=== PATIENT | female | born 1955 | race Caucasian/White ===

== ENCOUNTER 2024-04-18 21:01 | Outpatient (CLI) | payer MEDICARE, OTHER, SELFPAY | END 2024-04-18 21:02 | disposition home or self-care (01) | LOC: SLEEP 21:02 | PROVIDERS: PCP Family Medicine; Visit Provider Internal Medicine | DX: G47.33 Obstructive sleep apnea (adult) (pediatric) (principal) | CPT/HCPCS: 95810; A9270 ==

== ENCOUNTER 2024-05-24 08:15 | Outpatient (RCR) | payer MEDICARE, OTHER, SELFPAY | END 2024-08-14 12:56 | disposition home or self-care (01) | PROVIDERS: PCP Family Medicine; Visit Provider Family Medicine | DX: M70.61 Trochanteric bursitis, right hip (principal); M70.62 Trochanteric bursitis, left hip; M16.12 Unilateral primary osteoarthritis, left hip; M51.36 Other intervertebral disc degeneration, lumbar region; M25.552 Pain in left hip; M25.551 Pain in right hip; M54.50 Low back pain, unspecified; Z51.89 Encounter for other specified aftercare | CPT/HCPCS: 97110; 97140; 97161 ==

== ENCOUNTER 2024-08-03 09:12 | Inpatient (IN) | payer MEDICARE, OTHER, SELFPAY ==
[2024-08-02] VITALS (29 sets, daily range): BP systolic 79–155; BP diastolic 50–105; PULSE 68–92; RESP 14–18; TEMP 35.6–36.6; O2SAT 92–100; BMI 31.4
[2024-08-02] MEDS: ACETAMINOPHEN 500 MG TABLET 1000 MG PO ×3 (07:15→19:50)
[2024-08-02] MEDS: OXYCODONE (CR) 10 MG TAB.ER.12H PO (07:15)
[2024-08-02] MEDS: SODIUM CHLORIDE 0.9 % (FLUSH) 10 ML SYRINGE IVF (07:15)
[2024-08-02] MEDS: fentaNYL 100 MCG/2 ML inj IVP (07:25)
[2024-08-02] MEDS: MIDAZOLAM HCL 1 MG/ML inj IVP (07:25)
[2024-08-02] MEDS: LACTATED RINGERS 1000 ML 1,000 ML 100 ML IV (07:25)
[2024-08-02] MEDS: CEFAZOLIN 2 GM INJ IVP (07:40)
[2024-08-02] MEDS: TRANEXAMIC ACID 100 MG/ML INJ 1000 MG IV (07:45)
--- NOTE | 2024-08-02 07:45 | CRLHL7_ITS ---
For Patients: As a result of the Century Cures Act, medical imaging exams and procedure reports are released immediately into your electronic medical record. You may view this report before your referring provider. If you have questions, please contact your health care provider. INDICATION: Left total hip prosthesis placement. COMPARISON: Pelvis and left hip from 06/04/2024. FINDINGS: Intraoperative fluoroscopy is provided. 84.1 seconds of fluoroscopic time was used. Two AP images of the left hip are submitted. The components of a newly placed long-stem left total hip prosthesis are in anatomic alignment with no sign of fracture, loosening, or dislocation. There is no sign of fracture of the [place] osseous structures. IMPRESSION: Satisfactory placement of a new long stem left total hip prosthesis. Dictated by Toñito Carter MD @ 08/03/2024 9:14:58 PM (Electronically Signed)
--- NOTE | 2024-08-02 08:00 | W.ANESCHARGE ---
Anesthesia Charges Start Date/Time Anesthesia Start Date: 08/02/24 Anesthesia Start Time: 07:31 Stop Date/Time Anesthesia Stop Date: 08/02/24 Anesthesia Stop Time: 11:27
--- NOTE | 2024-08-02 08:00 | W.PM.NB ---
Nerve Block Nerve Block Time Seen by Provider: 07:30 Date Seen: 08/02/24 Type of block requested by surgeon for post-operative analgesia: BRANDON/LFCN Side: left Time out performed: Yes Verification of patient name: Yes Verification of date of : Yes Site marking: site marked Name of person performing procedure: Kirill Continuous monitoring Was continuous monitoring of O2 sat, B/P, surveillance monitor, recorded every 15 minutes?: Yes Procedure Checklist: sterile prep, needles and gloves Ultrasound guided. Images saved: Yes Medications given in 5ml increments after negative aspiration: Ropivicaine %: 0.5 mL: 30 Needle gauge: 20 Precedex (mcg): 25 Patient tolerated procedure well: Yes Additional comments: Needle noted below psoas tendon needle noted adjacent to LFCN Block Charges Block Charge (with Pro Fee): Other Periph Nerve Block Use of Ultrasound Machine for Block: Yes- US Guidance/pain block
--- NOTE | 2024-08-02 10:37 | CRLHL7_ITS ---
For Patients: As a result of the Century Cures Act, medical imaging exams and procedure reports are released immediately into your electronic medical record. You may view this report before your referring provider. If you have questions, please contact your health care provider. INDICATION: Status post hip prosthesis placement. COMPARISON: Intraoperative films from today. Preoperative films from 06/04/2024. FINDINGS: The left hip was examined with AP and cross-table lateral. An AP view of the pelvis is obtained for a total of three views. The components of the newly placed long-stem left total hip prosthesis are again seen in anatomic alignment with no sign of fracture, loosening, or dislocation. Three large metallic clips are seen along the lateral proximal left femoral shaft. There is an acute, oblique, nondisplaced fracture of the lateral proximal femoral shaft adjacent to the inferior clip. This is in the area of the lucency lesion mildly expanding the medullary cavity of the mid-proximal left femoral shaft. Recommend correlation with the operative note. A large metallic clip is seen superior to the lesser trochanter. The left femoral head and acetabulum are in anatomic alignment. No degenerative disease is seen of the left hip. The right hip is unremarkable. The SI joints and pubic symphysis are normal in appearance. The rest of the bony pelvis and soft tissues are normal in appearance. IMPRESSION: 1. Satisfactory positioning of a long-stem left total hip prosthesis. 2. Acute, oblique, nondisplaced fracture of the lateral proximal femoral shaft, adjacent to the inferior of 3 large metallic clips placed in the lateral proximal femoral cortex. Recommend correlation with the procedure notes. Dictated by Toñito Carter MD @ 08/03/2024 9:19:55 PM (Electronically Signed)
--- NOTE | 2024-08-02 10:39 | P.ORPRC_ITS ---
Procedure Note Date of procedure: 08/02/24 Procedure: PREOPERATIVE DIAGNOSIS: Left hip osteoarthritis, femoral shaft fibrous dysplasia POSTOPERATIVE DIAGNOSIS: Left hip osteoarthritis, femoral shaft fibrous dysplasia, greater trochanter fracture through the fibrous dysplasia NAME OF OPERATION: Left total hip arthroplasty, greater trochanter fracture ORIF SURGEON: Luis Perkins MD DOUBLE NEEDLE OPERATOR: Aurea Soto PA-C, BLANQUITA Stanford IMPLANTS: 1. [employer] [place] # 50 sector ingrowth cup 2. 32 x 50 +4 neutral polyethylene 3. [place] # 14 revision standard collared ingrowth stem 4. 32 +1 ceramic femoral head ANESTHESIA: Spinal ESTIMATED BLOOD LOSS: 350 cc COMPLICATIONS: None SPECIMENS: Bone from the canal obtained through the fracture from the fibrous dysplasia sent labeled as left femur fibrous dysplasia DRAINS: None PREOPERATIVE ANTIBIOTICS: Ancef 1 g INDICATIONS: The patient is a 69-year-old with a longstanding history of severe, unrelenting left hip pain secondary to end-stage left hip osteoarthritis. Despite appropriate nonoperative management, including activity modification, use of an assist device, anti-inflammatories, [id number] pain medication, physical therapy and injections, they continue to have pain and disability. Operative intervention was offered. There is an area of fibrous dysplasia of the femoral shaft, near where the tip of our femoral component would and. Therefore, we had planned to have a longer implant available to be able to bypass the lesion by 2 shaft diameters. The risks, benefits and expected outcomes were discussed in detail. These included but were not limited to: Infection, bleeding, injury to blood vessel or nerve, venous thromboembolism. All questions were answered to their satisfaction. Use of an carpenter assistant installer was necessary throughout the case for patient positioning and safety, soft tissue retraction and closure. A modifier 22 should be added to this case. The area of fibrous dysplasia resulted in bone that was quite thin and weak. This resulted in a fracture that required fixation and a long-stemmed implant. The case took significantly longer to complete because of these factors. PROCEDURE: Spinal anesthesia was administered. The patient was placed supine on the [place] table. The carpenter assistant installer made sure the patient was properly positioned. The left hip was prepped and draped in the usual sterile fashion. The image intensifier was brought in for a perfect AP pelvis and a perfect double tear drop AP view of each hip which were used for intraoperative templating with our fluoroscopic guide. An oblique incision was made 3 cm distal and 3 cm lateral to the anterior superior iliac spine. The carpenter assistant installer retracted the soft tissues to protect them. Subcutaneous dissection was taken with electrocautery to the superficial fascia. The fascia was divided in line with the incision. Blunt dissection was carried medially to the tensor fascia lizzette and sartorius interval. Deep dissection was carried with electrocautery. The circumflex vessels were cauterized and divided. The capsule was exposed and then divided in a T- fashion, tagged with #1 Ethibond sutures. Retractors were placed in the joint, held by the carpenter assistant installer. The corkscrew was placed in the femoral head. The neck cut was made in the subcapital region. We made a second neck cut more distal. The napkin ring of bone was removed. The femoral head was removed intact. Acetabular retractors were placed, held by the carpenter assistant installer. The labrum was sharply debrided. The capsule was released. The 43 mm reamer was used to the true medial wall. We then enlarged in 2 mm increments using the image inte nsifier for our reamer placement. We impacted the cup which had excellent purchase. We placed the polyethylene. Attention was then turned to the proximal femur. The limb was placed in 140 degrees of external rotation, maximum extension and adduction. A significant amount of time was spent releasing the capsule to allow us to deliver the femur into the wound and complete the femoral side safely. Retractors were held by the carpenter assistant installer throughout the femoral preparation. The box puller and canal finder were used. Broaches were used to a stable size. The calcar reamer was used. As we seated the final broach a fracture was noted in the posterior aspect of the femoral neck. A super cable was placed around it, proximal to the lesser trochanter. Trial components were placed. The hip was reduced and was found to be stable with appropriate soft tissue tension. Length and offset had been nicely restored using the image intensifier and our fluoroscopic guide. However, there was a fracture noted over the lateral cortex of proximal portion of the fibrous dysplasia lesion. There was a 2nd fracture line more proximal to this which presumably heads posterior, proximally and exits the posterior femoral neck. Therefore, the medial calcar and the entirety of the medial shaft is intact. The greater trochanter is a large piece. There was a small butterfly fragment which comprises the lateral cortex of the shaft, at the fibrous dysplasia lesion. Trial components were removed. A separate, longitudinal incision was placed over the lateral thigh at the level of the distal most fracture. Subcutaneous dissection was taken Dr. Ventura to the IT band. The ITB band was divided in line. The fascia over the vastus lateralis was sharply divided. The fibers of the lateralis were bluntly divided with a Gonzalez elevator. The [place] retractor was placed. We placed 2 super cables around the butterfly fragment, reducing it near anatomically. We placed a 4th super cable just proximal to this at the distal tip of the greater trochanter fracture, resulting in 2 super cables securing the greater trochanter fragment. We then returned to the femoral prep. The shaft was carefully reamed by hand to 14. We then carefully broached with the revision broaches to 14. The 14 broach has excellent stability. We placed the 14 revision trial and reduced the hip. The hip was found to be stable with appropriate soft tissue tension. Length and offset was nicely restored. Trial components were removed. The stem was impacted. We placed the femoral head. Again, the hip was reduced and was found to be stable with appropriate soft tissue tension. Length and offset had been nicely restored. We inspected fractures over the lateral cortex through a more distal incision and found them to remain nicely reduced. The carpenter assistant installer did a three minute dilute Betadine solution soak. The carpenter assistant installer irrigated the wound with 3 liters of normal saline via pulse lavage. The carpenter assistant installer repaired the anterior capsule with a #1 Vicryl and our previously placed Ethibond sutures. The carpenter assistant installer closed the fascia over the tensor fascia lizzette with a #1 PDO Stratafix, subcutaneous tissues with 2-0 Vicryl, skin with a running 3-0 Stratafix and glue. A dry dressing was applied by the carpenter assistant installer. Sponge and needle counts were correct x 2. The patient tolerated the procedure well; there were no apparent complications. They were awakened and extubated in the operating room, sent to the Post-Anesthesia Care Unit in satisfactory condition. PLAN: 1. The patient will be mobilized with physical therapy, weight-bearing as tolerates 2. Xarelto x 5 days then aspirin x 30 days will be used for DVT prophylaxis 3. The patient will be admitted overnight and discharged once medically appropriate
--- NOTE | 2024-08-02 11:26 | W.ANESCHARGE ---
Anesthesia Charges Start Date/Time Anesthesia Start Date: 08/02/24 Anesthesia Start Time: 07:31 Stop Date/Time Anesthesia Stop Date: 08/02/24 Anesthesia Stop Time: 11:27
[2024-08-02] MEDS: fentaNYL 100 MCG/2 ML inj 50 MCG IVP (11:45)
[2024-08-02] MEDS: LACTATED RINGERS 1000 ML 1,000 ML 75 ML IV (12:48)
[2024-08-02] MEDS: ONDANSETRON 2 MG/ML inj 4 MG IVP ×2 (12:49→18:28)
--- NOTE | 2024-08-02 13:02 | P.IMCN_ITS ---
Date of Consult Patient: [facility] Patient Consult date: 08/02/24 Requesting Physician: Orthopedics Primary Care Provider: Sandra Avelar MD Consult Narrative Reason for consult: Medical management Narrative: Steffany Pedroza is a 69 year old female past medical history significant for hypertension, hypothyroidism, hyperlipidemia, celiac disease, malignant melanoma of left lower leg, asthma is admitted to the medical floor from same-day surgery following elective left BREEZY resulting in intraoperative left greater trochanter fracture. Postoperatively, patient reports pain is currently well managed 11/05. Had some mild nausea but this has improved with Zofran. No vomiting. Tolerating ice chips. Denies headache or dizziness. Denies chest pain or shortness of breath. Review of Systems Narrative: REVIEW OF SYSTEMS: Complete review of systems performed and negative unless otherwise stated in HPI or below. PFSH PFS Medical History Acute diverticulitis ?K57.92 - Diverticulitis of intestine, part unspecified, without perforation or abscess without bleeding (ICD-10) Numbness of toes ?R20.0 - Anesthesia of skin (ICD-10) Celiac disease ?K90.0 - Celiac disease (ICD-10) Malignant melanoma of left lower leg ?C43.72 - Malignant melanoma of left lower limb, including hip (ICD-10) Hypothyroid ?E03.9 - Hypothyroidism, unspecified (ICD-10) High cholesterol ?E78.00 - Pure hypercholesterolemia, unspecified (ICD-10) Asthma ?J45.909 - Unspecified asthma, uncomplicated (ICD-10) Hypertension ?I10 - Essential (primary) hypertension (ICD-10) Sleep apnea ?G47.30 - Sleep apnea, unspecified (ICD-10) Surgical History H/O hemorrhoidectomy ?Z98.890 - Other specified postprocedural states (ICD-10) History of appendectomy ?Z90.49 - Acquired absence of other specified parts of digestive tract (ICD- 10) Family History Father Pancreatic cancer Mother Colon cancer Social History Smoking Status: Never smoker How often do you have a drink containing alcohol: monthly or less AUDIT-C Alcohol total score: 1 Non-prescribed substance use: denies use Caffeine: Yes Meds Home Medications and Allergies Home Medications ?Medication ?Instructions ?Recorded ?Confirmed ?Type fluticasone 250 mcg-salmeterol 50 1 inh inhalation Q12H 08/05/22 08/02/24 History mcg/dose blistr powdr for inhalation (Advair Diskus) betamethasone, augmented 0.05 % 1 applic topical BID PRN 06/04/24 08/02/24 History lotion latanoprost 0.005 % eye drops 1 drp ophthalmic (eye) HS 06/04/24 08/02/24 History levothyroxine 112 mcg tablet 112 mcg PO DAILY 06/04/24 08/02/24 History lisinopril 20 1 tab PO DAILY 06/04/24 08/02/24 History mg-hydrochlorothiazide 25 mg tablet rosuvastatin 5 mg tablet 5 mg PO MOWEFR 07/23/24 08/02/24 History celecoxib 200 mg capsule 200 mg PO BID 08/02/24 08/02/24 History dorzolamide 22.3 mg-timolol 6.8 1 drp ophthalmic (eye-left) BID 08/02/24 08/02/24 History mg/mL eye drops (Cosopt) Allergies Allergy/AdvReac Type Severity Reaction Status Date / Time No Known Drug Allergies Allergy Verified 06/12/24 14:11 Exam Narrative: Exam Narrative: PHYSICAL EXAM General: Pleasant, conversant, NAD HEENT: Normocephalic, atraumatic, sclera white, EOMI, oral mucosa moist Cardiovascular: RRR, S1S2. No pitting edema Pulmonary: CTA bilaterally without rhonchi, rales, expiratory wheezes. No dyspnea Abdominal: Soft, nondistended, NTTP Neurological: Alert, answering questions appropriately, cranial nerves intact, no focal findings Extremities: No gross joint deformity or swelling. Postoperative dressing in place, dry. Neurovascularly intact Skin: Warm, dry. Const: Vital Signs, click to edit/add: Vital Signs - 24 hr 08/02/24 07:14 08/02/24 07:17 08/02/24 07:20 Temperature 97.6 F Pulse Rate 90 89 91 Pulse Rate [Right Pulse Oximeter] Respiratory Rate 16 16 14 Blood Pressure 152/87 H 155/88 H 153/105 H Blood Pressure [Le ft Arm] Pulse Oximetry 98 98 100 Oxygen Delivery Me thod Room Air Nasal Cannula Nasal Cannula Oxygen Flow Rate 3 3 08/02/24 07:25 08/02/24 11:25 08/02/24 11:30 Temperature 97.4 F L Pulse Rate 92 76 77 Pulse Rate [Right Pulse Oximeter] Respiratory Rate 14 14 14 Blood Pressure 133/69 87/61 L 89/56 L Blood Pressure [Le ft Arm] Pulse Oximetry 92 100 98 Oxygen Delivery Me thod Nasal Cannula Room Air Room Air Oxygen Flow Rate 3 08/02/24 11:35 08/02/24 11:40 08/02/24 11:45 Temperature Pulse Rate 79 76 71 Pulse Rate [Right Pulse Oximeter] Respiratory Rate 14 14 14 Blood Pressure 79/50 L 106/63 100/58 L Blood Pressure [Le ft Arm] Pulse Oximetry 99 96 95 Oxygen Delivery Me thod Room Air Room Air Room Air Oxygen Flow Rate 08/02/24 11:50 08/02/24 11:55 08/02/24 11:56 Temperature 97.8 F 96.0 F L Pulse Rate 78 77 72 Pulse Rate [Right Pulse Oximeter] Respiratory Rate 14 14 16 Blood Pressure 105/66 102/66 100/61 Blood Pressure [Le ft Arm] Pulse Oximetry 93 100 100 Oxygen Delivery Me thod Room Air Room Air Room Air Oxygen Flow Rate 3 08/02/24 12:15 08/02/24 12:30 08/02/24 12:32 Temperature 96.0 F L 96.0 F L Pulse Rate 72 75 Pulse Rate [Right Pulse Oximeter] 77 Respiratory Rate 16 16 16 Blood Pressure 100/61 90/57 L Blood Pressure [Le ft Arm] 98/61 Pulse Oximetry 100 92 97 Oxygen Delivery Me thod Room Air Room Air Room Air Oxygen Flow Rate 3 08/02/24 12:53 Temperature Pulse Rate 74 Pulse Rate [Right Pulse Oximeter] Respiratory Rate 16 Blood Pressure 106/69 Blood Pressure [Le ft Arm] Pulse Oximetry 95 Oxygen Delivery Me thod Room Air Oxygen Flow Rate 3 Assessment and Plan Assessment and plan (1) Osteoarthritis of left hip: Problem comment: -POD#0 s/p left BREEZY, greater trochanter fracture ORIF, Dr. Perkins -perioperative management including pain management and anticoagulation per Orthopedic surgery -encourage postoperative pulmonary hygiene -PT OT consults -plan to discharge home tomorrow Status: Acute (2) Femur fracture, left: Problem comment: -intraoperative greater trochanter fracture through the fibrous dysplasia, s/p ORIF -admit to floor for post op cares Status: Acute (3) High cholesterol: Problem comment: -continue statin Status: Acute (4) Hypothyroid: Problem comment: -continue levothyroxine Status: Acute (5) Asthma: Problem comment: -encourage pulmonary hygiene, home inhaler p.r.n., Advair scheduled Status: Acute (6) Hypertension: Problem comment: -mildly hypotensive postoperatively as can be expected, monitor -continue lisinopril-HCTZ tomorrow morning with parameters Status: Acute Total Time Spent Total Time Spent: Total time spent caring for the patient today was 45 minutes. This includes time spent for the visit reviewing the chart, time spent during the visit, time spent after the visit and documentation and planning in coordination of care.
[2024-08-02] MEDS: OXYCODONE 5 MG TABLET PO ×2 (15:03→22:43)
[2024-08-02] MEDS: CEFAZOLIN 1 GM in 0.9 % SODIUM CHLORIDE Mini-bag 100 ML IVPB ×2 (15:07→22:43)
--- NOTE | 2024-08-02 15:23 | PC.NURSE ---
end of shift. pt has been very pleasant. left hip pain 2-4/10. 5 mg oxycodone. for pain., she is eating and drinking. no void so far. IS to 1500. she is up with 1 assist. dressing is C/D/I/ active ice applied. plexi are on. was nauseated and gave Zofran with relief
--- NOTE | 2024-08-02 16:02 | SUR.OPER ---
femur fracture occurred intraoperatively
[2024-08-02] MEDS: HYDROmorphone 0.5 mg/0.5 ml inj IVP (17:33)
--- NOTE | 2024-08-02 19:25 | PC.NURSE ---
15-19: The patient is pleasant and vss on RA. 2 mepilex dressing CDI to L hip. Ice pack to site. Pain increases with movement, IV Dilaudid given... the patient was encouraged to eat at this time. The patient then became nauseous and threw up 300cc. Educated on letting us know as soon as the nausea comes. LR @ 75 due to emesis and blood loss during surgery. The patients daughter has been present through the evening. Up in the chair. The patient has voided, call light within reach.
--- NOTE | 2024-08-02 23:41 | PC.NURSE ---
Pt alert, oriented and vitally stable. Pain rated 2/10, though 8-9/10 upon exertion, prn oxy given, pt stated improvement. Ice pack to op sites. Pt up to the bathroom via SBA, tolerates well. Pt on regular diet and tolerates well. Pt in bed, call light within reach.
[2024-08-03] MEDS: ACETAMINOPHEN 500 MG TABLET 1000 MG PO ×2 (01:57→08:03)
[2024-08-03 01:58] VITALS: BP 107/64; PULSE 79; RESP 16; TEMP 36.6; O2SAT 97
[2024-08-03 02:00] VITALS: RESP 16; O2SAT 97
[2024-08-03] MEDS: OXYCODONE 5 MG TABLET PO ×3 (05:44→11:57)
[2024-08-03] MEDS: LEVOTHYROXINE 112 MCG TABLET PO (06:42)
[2024-08-03 06:43] LABS: Eosinophils Absolute Auto 0.01 K/uL (0.00-0.50); Eosinophils Percent Auto 0.1 % (0.0-7.0); Hematocrit 25.7 % (33.0-51.0); Hemoglobin* 8.5 gm/dL (12.0-16.0); Immature Granulocytes Abs Auto 0.02 K/uL (0.00-0.30); Immature Granulocytes Pct Auto 0.3 %; Lymphocytes Percent Auto 12.8 % (20-44); Mean Corpuscular HGB Conc 33 gm/dL (32-36); Mean Corpuscular Hemoglobin 29 pg (26-34); Mean Corpuscular Volume 88 fL (80-100); Monocytes Percent Auto 9.6 % (0.0-11.0); Neutrophils Percent Auto 77.2 % (42.0-72.0); Platelet Count* 204 K/uL (140-440); RDW Coefficient of Variation % 12.8 % (11.5-15.5); Red Blood Count 2.93 m/uL (4.00-5.20); White Blood Count* 6.97 K/uL (4.50-11.00)
[2024-08-03 06:58] LABS: Sodium* 135 mmol/L (135-149)
[2024-08-03 07:00] VITALS: BP 126/76; PULSE 86; RESP 16; TEMP 36.6; O2SAT 97
[2024-08-03 07:00] LABS: Creatinine* 0.9 mg/dL (0.5-1.5); Est. Creatinine Clearance* 40.63; Estimated Glomerular Filt Rate 70 ml/min
[2024-08-03 07:01] LABS: Blood Urea Nitrogen* 27 mg/dL (7-30); Slide Review Reflex No
--- NOTE | 2024-08-03 07:39 | PC.NURSE ---
Pt alert and oriented x3. Afebrile. Pt rates 0/10 pain left hip while at rest and 6-7/10 pain with movement, PRN medications offered after movement pt declined stating ?I feel fine right now?. Left hip and thigh dressing?CDI. Pt is up SBA with walker and gait belt, voiding, passing gas and tolerating a regular diet. ?
[2024-08-03] MEDS: RIVAROXABAN 10 MG TABLET PO (08:04)
[2024-08-03] MEDS: lisinopriL 20 MG TABLET PO (08:05)
[2024-08-03] MEDS: hydroCHLOROthiazide 25 MG TABLET PO (08:05)
--- NOTE | 2024-08-03 09:58 | PM.ORPN ---
Subjective Subjective Time Seen by Provider: 07:19 Date Seen: 08/03/24 Principal diagnosis: Status post left hip replacement, greater trochanter fracture ORIF Interval history: Steffany has been ambulating last night and today. This has been going well. Feels good to weightbear she states. She had nausea yesterday which has resolved. She plans to discharge to home today with family. Ortho Exam Narrative Exam Narrative: Alert and oriented x3. Patient is in no acute distress. Converses without labored breathing. Hearing is grossly intact. Ambulates with a walker. Examination of the left hip and thigh shows the dressing is intact. No erythema or drainage or sign of infection. Ecchymosis present mild edema present. CMS intact left lower extremity. Calves are soft and nontender. Const Vital Signs, click to edit/add: Vital Signs - 24 hr 08/02/24 11:25 08/02/24 11:30 08/02/24 11:35 Temperature 97.4 F L Pulse Rate 76 77 79 Pulse Rate [Right Pulse Oximeter] Respiratory Rate 14 14 14 Blood Pressure 87/61 L 89/56 L 79/50 L Blood Pressure [Left Arm] Pulse Oximetry 100 98 99 Oxygen Delivery Method Room Air Room Air Room Air Oxygen Flow Rate 08/02/24 11:40 08/02/24 11:45 08/02/24 11:50 Temperature Pulse Rate 76 71 78 Pulse Rate [Right Pulse Oximeter] Respiratory Rate 14 14 14 Blood Pressure 106/63 100/58 L 105/66 Blood Pressure [Left Arm] Pulse Oximetry 96 95 93 Oxygen Delivery Method Room Air Room Air Room Air Oxygen Flow Rate 08/02/24 11:55 08/02/24 11:56 08/02/24 12:15 Temperature 97.8 F 96.0 F L 96.0 F L Pulse Rate 77 72 72 Pulse Rate [Right Pulse Oximeter] Respiratory Rate 14 16 16 Blood Pressure 102/66 100/61 100/61 Blood Pressure [Left Arm] Pulse Oximetry 100 100 100 Oxygen Delivery Method Room Air Room Air Room Air Oxygen Flow Rate 3 3 08/02/24 12:30 08/02/24 12:32 08/02/24 12:53 Temperature 96.0 F L Pulse Rate 75 74 Pulse Rate [Right Pulse Oximeter] 77 Respiratory Rate 16 16 16 Blood Pressure 90/57 L 106/69 Blood Pressure [Left Arm] 98/61 Pulse Oximetry 92 97 95 Oxygen Delivery Method Room Air Room Air Room Air Oxygen Flow Rate 3 08/02/24 13:00 08/02/24 13:17 08/02/24 13:35 Temperature Pulse Rate 73 76 73 Pulse Rate [Right Pulse Oximeter] Respiratory Rate 16 16 16 Blood Pressure 111/50 L 103/54 L 105/56 L Blood Pressure [Left Arm] Pulse Oximetry 94 98 96 Oxygen Delivery Method Room Air Room Air Room Air Oxygen Flow Rate 08/02/24 13:45 08/02/24 14:00 08/02/24 14:12 Temperature 96.0 F L Pulse Rate 73 75 73 Pulse Rate [Right Pulse Oximeter] Respiratory Rate 16 16 16 Blood Pressure 102/56 L 104/66 102/56 L Blood Pressure [Left Arm] Pulse Oximetry 95 96 95 Oxygen Delivery Method Room Air Room Air Room Air Oxygen Flow Rate 3 08/02/24 15:00 08/02/24 15:11 08/02/24 16:00 Temperature 97.0 F L 97.0 F L Pulse Rate 68 82 Pulse Rate [Right Pulse Oximeter] Respiratory Rate 16 16 Blood Pressure 118/62 110/67 Blood Pressure [Left Arm] Pulse Oximetry 98 96 97 Oxygen Delivery Method Room Air Room Air Oxygen Flow Rate 3 08/02/24 17:00 08/02/24 19:00 08/02/24 20:02 Temperature 97.5 F L 96.9 F L 96.9 F L Pulse Rate 89 89 Pulse Rate [Right Pulse Oximeter] 89 Respiratory Rate 16 18 18 Blood Pressure 143/79 H 123/71 Blood Pressure [Left Arm] 123/71 Pulse Oximetry 96 99 99 Oxygen Delivery Method Room Air Room Air Oxygen Flow Rate 08/02/24 23:55 08/03/24 01:58 08/03/24 02:00 Temperature 97.2 F L 97.9 F Pulse Rate Pulse Rate [Right Pulse Oximeter] 82 79 Respiratory Rate 16 16 16 Blood Pressure Blood Pressure [Left Arm] 117/62 107/64 Pulse Oximetry 99 97 Oxygen Delivery Method Room Air Room Air Oxygen Flow Rate 3 08/03/24 02:00 08/03/24 07:00 08/03/24 07:00 Temperature 97.9 F Pulse Rate Pulse Rate [Right Pulse Oximeter] 86 Respiratory Rate 16 16 16 Blood Pressure Blood Pressure [Left Arm] 126/76 Pulse Oximetry 97 97 97 Oxygen Delivery Method Room Air Room Air Room Air Oxygen Flow Rate Assessment and Plan Assessment and plan (1) Fibrous dysplasia (monostotic), left thigh: Status: Acute (2) Status post left hip replacement: Status: Acute (3) Femur fracture, left: Problem details: -intraoperative greater trochanter fracture through the fibrous dysplasia, s/p ORIF -admit to floor for post op cares Status: Acute Plan Plan for discharge is today, and when they meets discharge criteria. DVT prophylaxis upon discharge. Xarelto 10 mg daily for 5 days total, then aspirin 81 mg twice daily for 30 days Remove dressing 1 week. Observe wound and phone Orthopedics with any questions or concerns Use Ice on operative hip unrestricted. Return to clinic in 1 week with PA for a wound check Return to clinic in 6 weeks with surgeon Minimize narcotic use. Wean off and discontinue soon as possible. Activities as tolerated. No strenuous activity. Attend outpt PT She will stop Celebrex per her family provider.
[2024-08-03] MEDS: SENNOSIDES 1 TAB TABLET 2 TAB PO (10:33)
--- NOTE | 2024-08-03 12:07 | PC.NURSE ---
Discharge-- Very pleasant and cooperative, alert and oriented pt. discharged to home with daughter. VSS and pt is afebrile. SPO2 maintained >90% on RA. Pain appears well managed with Oxycodone and Tylenol. Dressing to left hip is C/D/I and CMS is WNL. LS CTA. She denied nausea and tolerated a regular breakfast without difficulty. She was up to the BR and chair with assist of 1, belt and walker and tolerated it well. Discharge education was provided including diagnosis info, symptoms to report, medications and follow up plan. All questions answered and SL was removed with tip intact.
== END 2024-08-03 12:00 | disposition home or self-care (01) | DRG 470 ==
LOC: OR 09:14 → MEDSURG 09:20
PROVIDERS: Admitting Provider Orthopaedic Surgery; PCP Family Medicine; Visit Provider Orthopaedic Surgery
PROC: 0SRB04A Replacement of Left Hip Joint with Ceramic on Polyethylene Synthetic Substitute, Uncemented, Open Approach (ICD-10-PCS; CPT 27130; principal; 2024-08-02 07:45)
DX: M16.12 Unilateral primary osteoarthritis, left hip (principal); M96.662 Fracture of femur following insertion of orthopedic implant, joint prosthesis, or bone plate, left leg; M85.052 Fibrous dysplasia (monostotic), left thigh; G89.18 Other acute postprocedural pain; I95.81 Postprocedural hypotension; G47.33 Obstructive sleep apnea (adult) (pediatric); J45.20 Mild intermittent asthma, uncomplicated; K90.0 Celiac disease; I10 Essential (primary) hypertension; E03.9 Hypothyroidism, unspecified; E78.5 Hyperlipidemia, unspecified
CPT/HCPCS: 01214; 36415; 64450; 73501; 76000; 76942; 82565; 84132; 84295; 84520; 85025; 86850; 86900; 86901; 88307; 88323; 88341; 88342; 97110; 97116; 97161; 97165; 97530; 97535; A9270; C1776; J0690; J1100; J1171; J2250; J2371; J2405; J2704; J2795; J3010; J7120

== ENCOUNTER 2024-10-12 06:19 | Outpatient (CLI) | payer MEDICARE, OTHER, SELFPAY ==
--- NOTE | 2024-10-12 07:38 | W.ANESCHARGE ---
Anesthesia Charges Start Date/Time Anesthesia Start Date: 10/12/24 Anesthesia Start Time: 07:14 Stop Date/Time Anesthesia Stop Date: 10/12/24 Anesthesia Stop Time: 07:35 Coding CPT Codes CPT Codes: SUMEET LWR INTST SCR COLSC - 02927 ([id number]) P2 - PATIENT W/MILD SYST DISEASE, QX - WIRE STRETCHER SVC W/ MD MED DIRECTION, QK - ENGINEER STATION MAINLINE 2-4 CNCRNT ANES PROC
--- NOTE | 2024-10-12 08:09 | W.ANESCHARGE ---
Anesthesia Charges Start Date/Time Anesthesia Start Date: 10/12/24 Anesthesia Start Time: 07:14 Stop Date/Time Anesthesia Stop Date: 10/12/24 Anesthesia Stop Time: 07:35 Coding CPT Codes CPT Codes: ANES LWR INTST SCR COLSC - 50592 ([id number]) P2 - PATIENT W/MILD SYST DISEASE, QK - ATTENDING UROLOGIST 2-4 CNCRNT ANES PROC, QX - ARBORICULTURE INSTRUCTOR SVC W/ MD MED DIRECTION
== END 2024-10-12 06:20 | disposition home or self-care (01) ==
LOC: OP CLINIC 06:20
PROVIDERS: PCP Family Medicine; Visit Provider Internal Medicine Gastroenterology
DX: Z12.11 Encounter for screening for malignant neoplasm of colon (principal); K57.30 Diverticulosis of large intestine without perforation or abscess without bleeding; Z86.0101 Personal history of adenomatous and serrated colon polyps; Z83.719 Family history of colon polyps, unspecified
CPT/HCPCS: 00812; 45378; J2704

== ENCOUNTER 2024-10-18 08:30 | Outpatient (RCR) | payer MEDICARE, OTHER, SELFPAY ==
--- NOTE | 2024-07-24 08:00 | PT.OPEX ---
PT [facility] Start: 07/03/24 15:31 Freq: Status: Active Protocol: Document 07/24/24 07:02 MLS (Rec: 07/24/24 07:59 MLS [email or web address]) E-signed By Jessica Tang DPT Physical Therapy Outpatient Evaluation Insurance Information Recert Due Date 10/21/24 Insurance Name Medicare B,Other; See Comments Insurance Information/Comments [employer] Medical Diagnosis s/p total left hip arthroplasty 08/02/24 M16.12 Unilateral primary OA Z96.642 Presence of left artificial hip joint Treating Diagnosis BREEZY protocol Referring MD Dr. Perkins Subjective Subjective Patient is a 69 year old female who presents to physical therapy for her pre- op appt prior to left BREEZY on 08/02/24. Patient reports that she has had hip pain for a very long time. Significant medical history includes hypertension (controlled). 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 Precautions Weight Bearing Status Full Weight Bearing Therapy Limitations/Systems Review Not Limited Objective Other/Pertinent Objective GAIT/FUNCTIONAL MOBILITY Independent, minimal antalgic gait KNEE ROM Grossly tested WNL B HIP ROM Right: WNL Left: Flexion: 90 Abduction: 20 IR: 20 ER: 25 LLE MMT: Hip flexion: R 4+/5 L 4/5 Hip abduction: R 4+/5 L 4/5 Hip extension: R 4+/5 L 4/5 Knee flexion: R 4+/5 L 4/5 Knee extension: R 4+/5 L 4/5 Reviewed/demonstrated on frequency to perform HEP post operatively including: long sitting quad set ankle pumps supine glute sets supine hamstring sets supine heel slide standing hip abd with UE support Extensive discussion and education on what to expect post operatively. Time was spent discussing home modifications, Assistive devices, pain control, fall prevention, hospital stay time line, and assist needed for activities post surgically. Pt questions were answered and demonstrated understanding. Assessment Assessment/Impression Pt is a 69 year old female who presents for her pre-op appointment prior to left BREEZY on 08/02/24. Patient also has notable objective findings including limited ROM, tenderness to palpation, and decreased strength which are also likely contributing to the problem. Patient is a good candidate for skilled therapy to target deficits described above. Skilled PT intervention is necessary for use of therapeutic exercise manual therapy, neuromuscular re- education, gait training, and therapeutic activity. Functional impairments include difficulty with: standing, walking, exercising, sleeping, driving and ADLS. See appropriate sections of PT eval for complete list of goals and POC. D/C plan and criteria is for pt to achieve the goals as listed below or until max rehab potential is met. Pt was agreeable with plan of care and goals established. Primary Functional Limitations standing walking driving exercising ADLs sleeping Plan of Care Rehabilitation Potential Good Physical Therapy Goals BREEZY GOALS Within 10-12 weeks: 1) Pt will ambulate at least 15 minutes with cane, minimal antalgic gait for improved community mobility 2) Pt will be indep with HEP for intermodal dispatcher management of pain/symptoms 3) Pt will improve hip AROM at least 0-90* for improved sit to stand transfers 4) Patient will ascend/descend at least 12 steps using single rail and reciprocal pattern to improve ease of mobility at home/community 5)Pt will ambulate at least 20 minutes without assistive device, minimal antalgic gait for improved community mobility Coordination/Communication With Referral Source Treatment Plan/Direct Interventions Gait Training,Manual Therapy, Neuromuscular Re-ed, Therapeutic Activities, Therapeutic Exercises Patient Will Be Discharged From Therapy Independently Progressing Evaluation Billing Untimed Code Treatment Minutes 30 Complexity Low Certification Information Provider Signature Required Yes Provider Signature Shows Agreement With POC & Medical Necessity Physician NPI Number Write NPI# Here Physician Comment/Change : Physician Signature & Date Requested Please Sign/Date Here
== END 2025-02-05 12:37 | disposition home or self-care (01) ==
PROVIDERS: PCP Family Medicine; Visit Provider Orthopaedic Surgery
DX: Z48.89 Encounter for other specified surgical aftercare (principal); M16.12 Unilateral primary osteoarthritis, left hip; Z96.642 Presence of left artificial hip joint; Z51.89 Encounter for other specified aftercare
CPT/HCPCS: 97110; 97140; 97161; 97164

== ENCOUNTER 2024-12-27 08:15 | Outpatient (RCR) | payer MEDICARE, OTHER, SELFPAY | END 2025-02-05 12:38 | disposition home or self-care (01) | PROVIDERS: PCP Family Medicine; Visit Provider Family Medicine | DX: M25.511 Pain in right shoulder (principal); G89.29 Other chronic pain; Z51.89 Encounter for other specified aftercare | CPT/HCPCS: 97110; 97140; 97161 ==